=== PATIENT | female | born 1995 | race American Indian/Alaskan Native ===

== ENCOUNTER 2019-05-15 17:10 | Emergency (ER) | payer SELFPAY ==
--- NOTE | 2019-05-15 17:20 | Event Note ---
ED Screening Note Date of service: 05/15/19 Time: 17:19 ED Screening Note: Pt complains vaginal pain and itching x 6 days denies vaginal discharge unsure of vaginal lesions This initial assessment/diagnostic orders/clinical plan/treatment(s) is/are subject to change based on patients health status, clinical progression and re- assessment by fellow clinical providers in the ED. Further treatment and workup at subsequent clinical providers discretion. Patient/guardian urged not to elope from the ED as their condition may be serious if not clinically assessed and managed. Initial orders include: ACC eval
[2019-05-15 18:04] LABS: Bilirubin,Urine NEG (Negative); Blood,Urine SM (Negative); Color,Urine Yellow (Yellow); Mucus,Urine FEW /HPF; Protein,Urine <15 mg/dL mg/dL (Negative); Urobilinogen,Urine < 2.0 mg/dL (<2.0)
[2019-05-15 18:07] LABS: HCG Qualitative,Urine Negative (Negative)
--- NOTE | 2019-05-15 20:10 | Emergency Department Report ---
ED Female HPI - General Chief complaint: Urogenital-Female Stated complaint: VAG PAIN Time Seen by Provider: 05/15/19 17:19 Source: patient Mode of arrival: Ambulatory Limitations: No Limitations - History of Present Illness Initial comments: Patient is a 23-year-old female presents emergency room with complaints of vaginal pain that began 4 days ago. She has associated dysuria and urinary frequency. She denies any vaginal discharge. She states that she does have vaginal itching and burning. She reports that she is not currently sexually active. she denies any abd pain, fever, n/v/d. She denies any past medical history. She denies any allergies to medications. She states her last menstrual cycle was April 29, 2019. - Related Data Allergies Allergy/AdvReac Type Severity Reaction Status Date / Time No Known Allergies Allergy Unverified 05/15/19 17:16 ED Review of Systems ROS: Stated complaint: VAG PAIN Other details as noted in HPI Comment: All other systems reviewed and negative ED Past Medical Hx - Past Medical History Previous Medical History?: No - Surgical History Past Surgical History?: No - Social History Smoking Status: Current Some Day Smoker Substance Use Type: Alcohol ED Physical Exam - General Limitations: No Limitations General appearance: alert, in no apparent distress - Head Head exam: Present: atraumatic, normocephalic - Eye Eye exam: Present: normal appearance - ENT ENT exam: Present: mucous membranes moist - Respiratory Respiratory exam: Present: normal lung sounds bilaterally. Absent: respiratory distress, wheezes, rales, rhonchi, stridor, chest wall tenderness, accessory muscle use, decreased breath sounds, prolonged expiratory - Cardiovascular Cardiovascular Exam: Present: regular rate, normal rhythm, normal heart sounds. Absent: systolic murmur, diastolic murmur, rubs, gallop - GI/Abdominal GI/Abdominal exam: Present: soft, normal bowel sounds. Absent: distended, tenderness, guarding, rebound, rigid - External exam: Present: normal external exam. Absent: erythema, swelling, lesions, lacerations, ecchymosis, bleeding Speculum exam: Present: vaginal discharge (white/alexandre), cervical discharge (white/alexandre), other (communications attendant: GIOVANNI jiménez). Absent: erythema, vaginal bleeding, foreign body, tissue, laceration Bi-manual exam: Present: normal bi-manual exam. Absent: cervical motion tendernes, adnexal tenderness, adnexal mass - Neurological Exam Neurological exam: Present: alert, oriented X3 - Psychiatric Psychiatric exam: Present: normal affect, normal mood - Skin Skin exam: Present: warm, dry, intact ED Course Vital Signs 05/15/19 05/15/19 17:15 17:19 Temperature 97.8 F 97.8 F Pulse Rate 87 90 Respiratory 18 18 Rate Blood Pressure 120/67 120/67 O2 Sat by Pulse 99 99 Oximetry ED Medical Decision Making - Lab Data Lab Results 05/15/19 Range/Units 17:53 Urine Color Yellow (Yellow) Urine Turbidity Clear (Clear) Urine pH 7.0 (5.0-7.0) Ur Specific [place] 1.018 (1.003-1.030) Urine Protein <15 mg/dl (Negative) mg/dL Urine Glucose (UA) Neg (Negative) mg/dL Urine Ketones Neg (Negative) mg/dL Urine Blood Sm (Negative) Urine Nitrite Neg (Negative) Urine Bilirubin Neg (Negative) Urine Urobilinogen < 2.0 (<2.0) mg/dL Ur Leukocyte Esterase Tr (Negative) Urine WBC (Auto) 2.0 (0.0-6.0) /HPF Urine RBC (Auto) 3.0 (0.0-6.0) /HPF U Epithel Cells (Auto) 2.0 (0-13.0) /HPF Urine Mucus Few /HPF Urine HCG, Qual Negative (Negative) - Medical Decision Making Patient is a 23-year-old female presents emergency room with complaints of vaginal pain that began 4 days ago. She has associated dysuria and urinary frequency. She denies any vaginal discharge. She states that she does have vag inal itching and burning. She reports that she is not currently sexually active. she denies any abd pain, fever, n/v/d. She denies any past medical history. She denies any allergies to medications. She states her last menstrual cycle was April 29, 2019. vitals are normal. on exam: white/alexandre vaginal/cervical discharge, no CMT, no adnexal masses or ttp, no abd ttp, communications attendant: GIOVANNI jiménez. UA without evidence of UTI. Wet prep is negative. G/C swab sent. Offered patient treatment for G/C prophylactically and she politely declined and would like to wait for her results. Patient states that she believes her symptoms are due to using a perfume soap which she has never used before. 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 Please be seen by the health department or other clinic for a full STD panel. Please have any partner tested and treated as well. Please avoid sexual intercourse until you have received all your results. Please avoid perfume soaps, douching, practice good hygiene, shower after intercourse. Return to the emergency room for any new or worsening symptoms. - Differential Diagnosis UTI, BV, yeast, STD, vaginitis, PID Critical care attestation.: If time is entered above; I have spent that time in minutes in the direct care of this critically ill patient, excluding procedure time. 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 Please be seen by the health department or other clinic for a full STD panel. Please have any partner tested and treated as well. Please avoid sexual intercourse until you have received all your results. Please avoid perfume soaps, douching, practice good hygiene, shower after intercourse. Return to the emergency room for any new or worsening symptoms. Referrals: [facility] [Outside] - 2-3 Days [facility] [Outside] - 2-3 Days [facility] [Outside] - 2-3 Days Time of Disposition: 20:47 Print Language: GEORGIAN
[2019-05-15 21:05] VITALS: BP 123/88
== END 2019-05-15 21:02 | disposition home or self-care (01) ==
LOC: ED 17:10
DX: N89.8 Other specified noninflammatory disorders of vagina (principal); F17.200 Nicotine dependence, unspecified, uncomplicated
CPT/HCPCS: 81001; 81025; 87210; 87591